=== PATIENT | male | born 1970 | race African-American/Black ===

== ENCOUNTER 2020-08-20 09:47 | Inpatient (IN) ==
[2020-08-20] MEDS ORDERED: SODIUM CHLORIDE 0.9% 1,000 ML IV STA ×2 (10:26→11:43)
[2020-08-20] MEDS ORDERED: INSULIN REGULAR 100 UNIT/ML IV ONE (10:27)
[2020-08-20 11:13] LABS: Albumin 3.6 G/DL (3.4-5.0); Bilirubin,Total 0.5 MG/DL (0.2-1.0); Calcium 10.3 MG/DL (8.5-10.1); Osmolality,Calculated 373.9 MOS/KG (273-304)
[2020-08-20 11:15] LABS: Basophils # 0.1 10*3/uL (0.0-0.2); Basophils % 0.3 % (0.0-0.8); Eosinophils # 0.1 10*3/uL (0.0-0.87); Eosinophils % 0.4 % (0.00-10.9); Hemoglobin 18.3 GM/DL (14.0-18.0); Immature Granulocytes % 0.7 %; Immature Granulocytes Absolute 0.16 #; Lymphocytes # 1.6 10*3/uL (1.4-4.0); Lymphocytes % 7.1 % (21.2-54.2); Mean Corpuscular HGB Conc 28.7 GM/DL (32-36); Mean Corpuscular Volume 94.2 FL (87-102); Mean Platelet Volume 12.6 FL (9.6-12.0); Monocytes % 6.2 % (1.7-12.7); Neutrophils % 85.3 % (38.7-73.9); Platelet Count 219 T/CUMM (130-400); Red Blood Count 6.76 MC/CUMM (3.8-5.5); Red Cell Distribution Width 17.3 % (9.3-17.3); White Blood Count 22.4 T/CUMM (4-12)
[2020-08-20 11:18] LABS: Hematocrit 63.7 VOL% (42.0-52.0)
[2020-08-20 11:22] LABS: Band Neutrophils 6 % (0-10); Hypochromasia 1+; Lymphocytes 4 % (20-55); Segmented Neutrophils 84 % (50-85); Total Cells Counted 100
[2020-08-20 11:23] LABS: Microcytosis 1+
[2020-08-20 11:24] LABS: Platelet Estimate Normal
[2020-08-20 11:43] LABS: ABG Base Excess -15.6 MMOL/L (-2.5-2.5); ABG HCO3 13.3 MMOL/L (20-26); ABG Oxygen Saturation 95.9 % (95-100); ABG PCO2 32.5 MM HG (35-48); ABG PO2 92.7 MM HG (80-95); ABG TCO2 10.6 MMOL/L (23-27)
[2020-08-20] MEDS ORDERED: ONDANSETRON 4 MG/2 ML VIAL IV PRN (12:01)
[2020-08-20] MEDS ORDERED: ALBUTEROL 2.5 MG/3 ML NEB RESP TX PRN (12:01)
[2020-08-20] MEDS ORDERED: DEXTROSE 50% 25 GM/50 ML VIAL IV PRN (12:05)
[2020-08-20] MEDS: INSULIN REGULAR DRIP 100 ML IV SCH ×3 (13:45→23:09)
[2020-08-20] MEDS ORDERED: SODIUM CHLORIDE 0.9% 1,000 ML IV ONE (13:48)
[2020-08-20] MEDS: PANTOPRAZOLE 40 MG VIAL IV SCH (14:10)
[2020-08-20] MEDS: LACTATED RINGERS 1,000 ML IV SCH ×2 (15:12→22:07)
[2020-08-20] MEDS: HEPARIN DRIP 25,000 UNITS/500 ML PREMIX IV SCH (15:32)
[2020-08-20 15:53] LABS: Calcium 9.6 MG/DL (8.5-10.1); Osmolality,Calculated 367.7 MOS/KG (273-304)
[2020-08-20] MEDS: MEROPENEM 500 MG in SODIUM CHLORIDE 0.9% 100 ML IV SCH (18:17)
[2020-08-20] MEDS ORDERED: DEXTROSE 5% LACTATED RINGERS 1,000 ML IV SCH (20:00)
[2020-08-20 21:46] LABS: Osmolality,Calculated 357.5 MOS/KG (273-304)
[2020-08-20] MEDS: POTASSIUM CHLORIDE RIDER 10 MEQ in PREMIX 1 EACH IV PRN ×2 (22:00→23:00)
[2020-08-20] MEDS: DEXTROSE 5% NACL 0.45% 1,000 ML IV SCH (22:00)
[2020-08-21 01:07] LABS: Bilirubin,Urine Negative (Negative); Blood, Urine Large mg/dL (Negative); Glucose,Urine (UA) >=500 mg/dL (Negative); Ketones,Urine 20 mg/dL (Negative); Nitrite,Urine Negative (Negative); Protein,Urine 100 MG/DL; RBC,Urine 1343 /HPF (0-4); Squamous Epithelial Cell,Urine Occasional /HPF (0-10); Urine Appearance CLOUDY (Clear); Urine Color Red (Yellow); Urine Specific Gravity 1.021 (1.001-1.035); Urine Urobilinogen < 2.0 EU/DL (0.2-1.0); WBC,Urine 17 /HPF (0-6)
[2020-08-21] MEDS: MEROPENEM 500 MG in SODIUM CHLORIDE 0.9% 100 ML IV SCH ×3 (01:30→17:33)
[2020-08-21 02:31] LABS: Calcium 7.3 MG/DL (8.5-10.1); Osmolality,Calculated 352.6 MOS/KG (273-304)
[2020-08-21] MEDS: DEXTROSE 5% NACL 0.45% 1,000 ML IV SCH ×2 (04:14→11:27)
[2020-08-21 04:23] LABS: Basophils # 0.1 10*3/uL (0.0-0.2); Basophils % 0.3 % (0.0-0.8); Hematocrit 55.3 VOL% (42.0-52.0); Hemoglobin 17.6 GM/DL (14.0-18.0); Immature Granulocytes % 0.6 %; Immature Granulocytes Absolute 0.13 #; Lymphocytes # 2.5 10*3/uL (1.4-4.0); Lymphocytes % 11.8 % (21.2-54.2); Mean Corpuscular HGB Conc 31.8 GM/DL (32-36); Mean Corpuscular Volume 86.9 FL (87-102); Monocytes % 6.8 % (1.7-12.7); NRBC # 0.03 10*3/uL; Neutrophils % 80.5 % (38.7-73.9); Platelet Count 191 T/CUMM (130-400); Red Blood Count 6.36 MC/CUMM (3.8-5.5); Red Cell Distribution Width 15.9 % (9.3-17.3)
[2020-08-21 04:52] LABS: Band Neutrophils 4 % (0-10); Lymphocytes 10 % (20-55); Platelet Estimate Normal; Segmented Neutrophils 83 % (50-85); Total Cells Counted 100
[2020-08-21 05:30] LABS: Calcium 9.4 MG/DL (8.5-10.1); Osmolality,Calculated 354.3 MOS/KG (273-304)
[2020-08-21] MEDS: HEPARIN DRIP 25,000 UNITS/500 ML PREMIX IV SCH ×3 (07:03→22:22)
[2020-08-21] MEDS: SODIUM CHLORIDE 0.45% 1,000 ML IV SCH ×3 (08:14→17:55)
[2020-08-21] MEDS: INSULIN REGULAR DRIP 100 ML IV SCH ×2 (09:31→13:18)
[2020-08-21] MEDS: CHOLECALCIFEROL 1,000 UNIT TABLET PO SCH ×2 (09:45→17:15)
[2020-08-21] MEDS: ASCORBIC ACID 500 MG TABLET PO SCH ×2 (09:45→17:15)
[2020-08-21] MEDS: ZINC GLUCONATE 50 MG TABLET PO SCH ×2 (09:45→17:15)
[2020-08-21 10:03] LABS: Calcium 9.4 MG/DL (8.5-10.1); Osmolality,Calculated 352.6 MOS/KG (273-304)
[2020-08-21] MEDS ORDERED: LACTATED RINGERS 1,000 ML IV ONE (10:10)
[2020-08-21 12:14] LABS: ABG Base Excess -1.9 MMOL/L (-2.5-2.5); ABG HCO3 22.8 MMOL/L (20-26); ABG Oxygen Saturation 97.2 % (95-100); ABG PCO2 39.8 MM HG (35-48); ABG PH 7.372 (7.35-7.45); ABG PO2 86.7 MM HG (80-95); ABG TCO2 19.2 MMOL/L (23-27)
[2020-08-21] MEDS: PANTOPRAZOLE 40 MG VIAL IV SCH (12:27)
[2020-08-21] MEDS ORDERED: SODIUM CHLORIDE 0.9% 1,000 ML IV PRN (14:19)
[2020-08-21 15:06] LABS: Calcium 9.3 MG/DL (8.5-10.1); Osmolality,Calculated 350.5 MOS/KG (273-304)
[2020-08-21] MEDS: DEXTROSE 50% 25 GM/50 ML VIAL IV PRN (16:55)
[2020-08-21 18:42] LABS: Calcium 8.1 MG/DL (8.5-10.1); Osmolality,Calculated 350.8 MOS/KG (273-304)
[2020-08-21] MEDS: INSULIN LISPRO 100 UNIT/ML SUBCUT SCH (21:47)
[2020-08-21] MEDS: POTASSIUM CHLORIDE RIDER 10 MEQ in PREMIX 1 EACH IV PRN (21:48)
[2020-08-21 23:14] LABS: Calcium 8.4 MG/DL (8.5-10.1)
[2020-08-22] MEDS: INSULIN LISPRO 100 UNIT/ML SUBCUT SCH ×6 (00:16→20:25)
[2020-08-22] MEDS: SODIUM CHLORIDE 0.45% 1,000 ML IV SCH ×4 (00:55→14:41)
[2020-08-22] MEDS: cloNIDine 0.1 MG TABLET PO PRN ×3 (03:03→13:09)
[2020-08-22] MEDS: MEROPENEM 500 MG in SODIUM CHLORIDE 0.9% 100 ML IV SCH ×3 (03:03→17:13)
[2020-08-22 04:01] LABS: Basophils # 0.1 10*3/uL (0.0-0.2); Basophils % 0.4 % (0.0-0.8); Eosinophils % 0.1 % (0.00-10.9); Hematocrit 46.7 VOL% (42.0-52.0); Hemoglobin 14.4 GM/DL (14.0-18.0); Immature Granulocytes % 1.7 %; Immature Granulocytes Absolute 0.34 #; Lymphocytes # 2.3 10*3/uL (1.4-4.0); Mean Corpuscular HGB Conc 30.8 GM/DL (32-36); Mean Corpuscular Volume 87.9 FL (87-102); Mean Platelet Volume 13.4 FL (9.6-12.0); NRBC # 0.06 10*3/uL; Neutrophils % 81.8 % (38.7-73.9); Red Blood Count 5.31 MC/CUMM (3.8-5.5); Red Cell Distribution Width 15.1 % (9.3-17.3); White Blood Count 19.4 T/CUMM (4-12)
[2020-08-22 04:14] LABS: Platelet Count 100 T/CUMM (130-400)
[2020-08-22 04:20] LABS: Osmolality,Calculated 360.3 MOS/KG (273-304)
[2020-08-22 04:27] LABS: Band Neutrophils 2 % (0-10); Lymphocytes 7 % (20-55); Nucleated Red Blood Cells 1 (0-5); Platelet Estimate Decreased; Segmented Neutrophils 86 % (50-85); Total Cells Counted 100
[2020-08-22 07:20] LABS: Osmolality,Calculated 354.7 MOS/KG (273-304)
[2020-08-22] MEDS: ASCORBIC ACID 500 MG TABLET PO SCH (08:11)
[2020-08-22] MEDS: ZINC GLUCONATE 50 MG TABLET PO SCH (08:11)
[2020-08-22] MEDS: CHOLECALCIFEROL 1,000 UNIT TABLET PO SCH (08:11)
[2020-08-22] MEDS ORDERED: INFLUENZA VIRUS VACCINE 0.5 ML SYRINGE IM ONE (09:00)
[2020-08-22] MEDS: DEXAMETHASONE 4 MG/1 ML VIAL IV SCH (10:18)
[2020-08-22] MEDS: INSULIN GLARGINE 100 UNIT/ML SUBCUT SCH ×2 (10:18→20:26)
[2020-08-22] MEDS: ACETAMINOPHEN 325 MG/10.15 ML UDCUP PER TUBE PRN ×2 (10:24→20:26)
[2020-08-22 11:47] LABS: Calcium 8.2 MG/DL (8.5-10.1); Osmolality,Calculated 354.6 MOS/KG (273-304)
[2020-08-22] MEDS ORDERED: SODIUM POLYSTYRENE SULFATE 15 GM/60 ML BOTTLE PO SCH (12:00)
[2020-08-22] MEDS: PANTOPRAZOLE 40 MG VIAL IV SCH (12:48)
[2020-08-22] MEDS ORDERED: SODIUM POLYSTYRENE SULFATE 15 GM/60 ML BOTTLE PO ONE (13:39)
[2020-08-22] MEDS: HEPARIN DRIP 25,000 UNITS/500 ML PREMIX IV SCH ×2 (14:19→20:25)
[2020-08-22 15:39] LABS: Osmolality,Calculated 357.5 MOS/KG (273-304)
[2020-08-22 17:24] LABS: Osmolality,Calculated 358.7 MOS/KG (273-304)
[2020-08-22 23:29] LABS: Calcium 7.6 MG/DL (8.5-10.1); Osmolality,Calculated 352.6 MOS/KG (273-304)
[2020-08-23] MEDS: INSULIN LISPRO 100 UNIT/ML SUBCUT SCH ×6 (00:23→21:52)
[2020-08-23] MEDS: MEROPENEM 500 MG in SODIUM CHLORIDE 0.9% 100 ML IV SCH ×3 (03:38→18:53)
[2020-08-23 03:44] LABS: Basophils % 0.2 % (0.0-0.8); Hematocrit 42.1 VOL% (42.0-52.0); Hemoglobin 13.3 GM/DL (14.0-18.0); Immature Granulocytes % 0.8 %; Immature Granulocytes Absolute 0.15 #; Lymphocytes # 1.3 10*3/uL (1.4-4.0); Lymphocytes % 7.2 % (21.2-54.2); Mean Corpuscular HGB Conc 31.6 GM/DL (32-36); Mean Corpuscular Volume 86.8 FL (87-102); Monocytes % 2.2 % (1.7-12.7); Neutrophils % 89.6 % (38.7-73.9); Red Blood Count 4.85 MC/CUMM (3.8-5.5); White Blood Count 17.9 T/CUMM (4-12)
[2020-08-23 03:45] LABS: Platelet Count 73 T/CUMM (130-400)
[2020-08-23 04:17] LABS: Band Neutrophils 3 % (0-10); Hypochromasia Slight; Lymphocytes 5 % (20-55); Platelet Estimate Decreased; Segmented Neutrophils 89 % (50-85); Total Cells Counted 100
[2020-08-23 04:18] LABS: Microcytosis Slight
[2020-08-23] MEDS: CHOLECALCIFEROL 1,000 UNIT TABLET PO SCH (08:01)
[2020-08-23] MEDS: DEXAMETHASONE 4 MG/1 ML VIAL IV SCH (08:01)
[2020-08-23] MEDS: ASCORBIC ACID 500 MG TABLET PO SCH (08:01)
[2020-08-23] MEDS: ZINC GLUCONATE 50 MG TABLET PO SCH (08:03)
[2020-08-23] MEDS: INSULIN GLARGINE 100 UNIT/ML SUBCUT SCH ×3 (09:14→21:52)
[2020-08-23 09:22] LABS: Calcium 7.5 MG/DL (8.5-10.1); Osmolality,Calculated 340.1 MOS/KG (273-304)
[2020-08-23] MEDS: SODIUM CHLORIDE 0.45% 1,000 ML IV SCH (09:37)
[2020-08-23] MEDS: PANTOPRAZOLE 40 MG VIAL IV SCH (11:30)
[2020-08-24] MEDS: INSULIN LISPRO 100 UNIT/ML SUBCUT SCH ×6 (00:48→20:50)
[2020-08-24] MEDS: SODIUM CHLORIDE 0.45% 1,000 ML IV SCH ×3 (00:49→19:21)
[2020-08-24] MEDS: MEROPENEM 500 MG in SODIUM CHLORIDE 0.9% 100 ML IV SCH ×3 (03:44→18:50)
[2020-08-24 04:57] LABS: Basophils % 0.1 % (0.0-0.8); Hematocrit 38.2 VOL% (42.0-52.0); Hemoglobin 12.3 GM/DL (14.0-18.0); Immature Granulocytes % 1.5 %; Immature Granulocytes Absolute 0.29 #; Lymphocytes # 1.4 10*3/uL (1.4-4.0); Mean Corpuscular HGB Conc 32.2 GM/DL (32-36); Mean Corpuscular Volume 85.5 FL (87-102); Mean Platelet Volume 12.9 FL (9.6-12.0); Monocytes % 3.2 % (1.7-12.7); Neutrophils % 88.2 % (38.7-73.9); Red Blood Count 4.47 MC/CUMM (3.8-5.5); Red Cell Distribution Width 14.5 % (9.3-17.3); White Blood Count 19.3 T/CUMM (4-12)
[2020-08-24 05:02] LABS: Platelet Count 93 T/CUMM (130-400)
[2020-08-24 05:20] LABS: Osmolality,Calculated 327.6 MOS/KG (273-304)
[2020-08-24 05:25] LABS: Band Neutrophils 2 % (0-10); Hypochromasia 1+; Lymphocytes 6 % (20-55); Microcytosis Slight; Platelet Estimate Decreased; Segmented Neutrophils 91 % (50-85); Total Cells Counted 100
[2020-08-24] MEDS: DEXAMETHASONE 4 MG TABLET PO SCH (09:34)
[2020-08-24] MEDS: ASCORBIC ACID 500 MG TABLET PO SCH (09:34)
[2020-08-24] MEDS: CHOLECALCIFEROL 1,000 UNIT TABLET PO SCH (09:34)
[2020-08-24] MEDS: ZINC GLUCONATE 50 MG TABLET PO SCH (09:34)
[2020-08-24] MEDS: INSULIN GLARGINE 100 UNIT/ML SUBCUT SCH ×2 (10:45→20:49)
[2020-08-24] MEDS: PANTOPRAZOLE 40 MG VIAL IV SCH (12:19)
[2020-08-25] MEDS: INSULIN LISPRO 100 UNIT/ML SUBCUT SCH ×9 (01:56→22:07)
[2020-08-25] MEDS: MEROPENEM 500 MG in SODIUM CHLORIDE 0.9% 100 ML IV SCH (03:41)
[2020-08-25 04:59] LABS: Basophils % 0.1 % (0.0-0.8); Hemoglobin 14.1 GM/DL (14.0-18.0); Immature Granulocytes % 1.6 %; Immature Granulocytes Absolute 0.24 #; Lymphocytes # 1.1 10*3/uL (1.4-4.0); Lymphocytes % 6.9 % (21.2-54.2); Mean Corpuscular Volume 84.8 FL (87-102); Mean Platelet Volume 12.5 FL (9.6-12.0); Monocytes % 5.1 % (1.7-12.7); Neutrophils % 86.3 % (38.7-73.9); Platelet Count 130 T/CUMM (130-400); Red Blood Count 5.19 MC/CUMM (3.8-5.5); Red Cell Distribution Width 14.1 % (9.3-17.3); White Blood Count 15.2 T/CUMM (4-12)
[2020-08-25 05:21] LABS: Alanine Aminotransferase 103 U/L (16-61); Alkaline Phosphatase 89 U/L (45-117); Aspartate Amino Transferase 170 U/L (0-37); Bilirubin,Total < 0.39 MG/DL (0.2-1.0); Blood Urea Nitrogen 123 MG/DL (7-18); Calcium 7.5 MG/DL (8.5-10.1); Estimated Glom Filtration Rate 14 ML/MIN; Glucose 190 MG/DL (74-106); Osmolality,Calculated 337.3 MOS/KG (273-304); Total Protein 6.8 G/DL (6.4-8.3)
[2020-08-25 05:27] LABS: Lymphocytes 9 % (20-55); Microcytosis Slight; Platelet Estimate Normal; Segmented Neutrophils 86 % (50-85); Total Cells Counted 100
[2020-08-25 06:19] LABS: Hepatitis B Core IgM Quant 0.08 Index; Hepatitis B Surface Ag Quant < 0.10 Index; Hepatitis B Surface Ag Result Negative (Negative); Hepatitis C Virus Ab Quant 0.04 Index; Hepatitis C Virus Ab Result Negative (Negative)
[2020-08-25] MEDS: INSULIN GLARGINE 100 UNIT/ML SUBCUT SCH ×2 (08:00→22:07)
[2020-08-25] MEDS: ASCORBIC ACID 500 MG TABLET PO SCH (08:02)
[2020-08-25] MEDS: DEXAMETHASONE 4 MG TABLET PO SCH (08:02)
[2020-08-25] MEDS: ZINC GLUCONATE 50 MG TABLET PO SCH (08:03)
[2020-08-25] MEDS: CHOLECALCIFEROL 1,000 UNIT TABLET PO SCH (08:03)
[2020-08-25] MEDS ORDERED: SODIUM POLYSTYRENE SULFATE 15 GM/60 ML BOTTLE PO ONE (10:03)
[2020-08-25] MEDS: APIXABAN 2.5 MG TABLET PO SCH ×2 (10:13→22:07)
[2020-08-25] MEDS: SODIUM CHLORIDE 0.45% 1,000 ML IV SCH (12:35)
[2020-08-25] MEDS: SODIUM BICARBONATE 650 MG TABLET PO SCH ×2 (14:30→22:07)
[2020-08-25 18:22] LABS: Calcium 7.8 MG/DL (8.5-10.1); Osmolality,Calculated 331.4 MOS/KG (273-304)
[2020-08-26] MEDS: INSULIN LISPRO 100 UNIT/ML SUBCUT SCH ×10 (01:07→20:47)
[2020-08-26] MEDS: APIXABAN 2.5 MG TABLET PO SCH ×2 (09:24→20:47)
[2020-08-26] MEDS: CHOLECALCIFEROL 1,000 UNIT TABLET PO SCH (09:24)
[2020-08-26] MEDS: INSULIN GLARGINE 100 UNIT/ML SUBCUT SCH ×2 (09:24→20:47)
[2020-08-26] MEDS: PANTOPRAZOLE 40 MG TABLET PO SCH (09:24)
[2020-08-26] MEDS: ZINC GLUCONATE 50 MG TABLET PO SCH (09:24)
[2020-08-26] MEDS: ASCORBIC ACID 500 MG TABLET PO SCH (09:24)
[2020-08-26] MEDS: SODIUM BICARBONATE 650 MG TABLET PO SCH ×3 (09:24→20:47)
[2020-08-26 11:48] LABS: Basophils % 0.2 % (0.0-0.8); Hemoglobin 14.6 GM/DL (14.0-18.0); Immature Granulocytes % 1.8 %; Immature Granulocytes Absolute 0.31 #; Lymphocytes # 1.2 10*3/uL (1.4-4.0); Lymphocytes % 6.8 % (21.2-54.2); Mean Corpuscular HGB Conc 31.7 GM/DL (32-36); Mean Corpuscular Volume 85.5 FL (87-102); Mean Platelet Volume 12.7 FL (9.6-12.0); Monocytes % 7.5 % (1.7-12.7); Neutrophils % 83.7 % (38.7-73.9); Platelet Count 174 T/CUMM (130-400); Red Blood Count 5.38 MC/CUMM (3.8-5.5); Red Cell Distribution Width 14.2 % (9.3-17.3)
[2020-08-26 12:02] LABS: Osmolality,Calculated 343.1 MOS/KG (273-304)
[2020-08-26] MEDS: cefTRIAXone 1,000 MG in SYRINGE 1 EACH IV SCH (13:58)
[2020-08-26] MEDS: AZITHROMYCIN INJ 500 MG in SODIUM CHLORIDE 0.9% 250 ML IV SCH (14:40)
[2020-08-26] MEDS: SODIUM CHLORIDE 0.45% 1,000 ML IV SCH (23:37)
[2020-08-27] MEDS: INSULIN LISPRO 100 UNIT/ML SUBCUT SCH ×10 (01:27→21:07)
[2020-08-27] MEDS: DEXTROSE 50% 25 GM/50 ML VIAL IV PRN ×2 (01:27→04:03)
[2020-08-27] MEDS: SODIUM CHLORIDE 0.45% 1,000 ML IV SCH ×2 (06:02→19:20)
[2020-08-27 06:51] LABS: Calcium 8.4 MG/DL (8.5-10.1); Osmolality,Calculated 345.4 MOS/KG (273-304)
[2020-08-27 07:10] LABS: Basophils # 0.1 10*3/uL (0.0-0.2); Basophils % 0.6 % (0.0-0.8); Eosinophils % 0.1 % (0.00-10.9); Hematocrit 49.7 VOL% (42.0-52.0); Immature Granulocytes % 2.2 %; Immature Granulocytes Absolute 0.31 #; Lymphocytes % 7.3 % (21.2-54.2); Mean Corpuscular HGB Conc 30.2 GM/DL (32-36); Mean Corpuscular Volume 89.4 FL (87-102); Mean Platelet Volume 11.9 FL (9.6-12.0); Monocytes % 7.9 % (1.7-12.7); Neutrophils % 81.9 % (38.7-73.9); Platelet Count 176 T/CUMM (130-400); Red Blood Count 5.56 MC/CUMM (3.8-5.5); Red Cell Distribution Width 14.3 % (9.3-17.3); White Blood Count 14.2 T/CUMM (4-12)
[2020-08-27] MEDS: APIXABAN 2.5 MG TABLET PO SCH ×2 (09:20→21:09)
[2020-08-27] MEDS: SODIUM BICARBONATE 650 MG TABLET PO SCH ×3 (09:20→21:08)
[2020-08-27] MEDS: POTASSIUM CHLORIDE RIDER 10 MEQ in PREMIX 1 EACH IV PRN ×3 (09:20→11:21)
[2020-08-27] MEDS: PANTOPRAZOLE 40 MG TABLET PO SCH (09:20)
[2020-08-27] MEDS: CHOLECALCIFEROL 1,000 UNIT TABLET PO SCH (09:20)
[2020-08-27] MEDS: ZINC GLUCONATE 50 MG TABLET PO SCH (09:20)
[2020-08-27] MEDS: ASCORBIC ACID 500 MG TABLET PO SCH (09:20)
[2020-08-27] MEDS: INSULIN GLARGINE 100 UNIT/ML SUBCUT SCH ×2 (09:35→21:08)
[2020-08-27 10:35] LABS: Anisocytosis 1+; Band Neutrophils 4 % (0-10); Hypochromasia Slight; Lymphocytes 9 % (20-55); Macrocytosis 1+; Metamyelocytes 2 %; Platelet Estimate Normal; Segmented Neutrophils 79 % (50-85); Total Cells Counted 100
[2020-08-27] MEDS: cefTRIAXone 1,000 MG in SYRINGE 1 EACH IV SCH (13:13)
[2020-08-27] MEDS: AZITHROMYCIN INJ 500 MG in SODIUM CHLORIDE 0.9% 250 ML IV SCH (13:16)
[2020-08-28] MEDS: SODIUM CHLORIDE 0.45% 1,000 ML IV SCH (00:42)
[2020-08-28] MEDS: INSULIN LISPRO 100 UNIT/ML SUBCUT SCH ×10 (01:30→20:33)
[2020-08-28 06:22] LABS: Basophils % 0.3 % (0.0-0.8); Eosinophils # 0.2 10*3/uL (0.0-0.87); Eosinophils % 1.6 % (0.00-10.9); Hematocrit 44.8 VOL% (42.0-52.0); Immature Granulocytes % 1.9 %; Immature Granulocytes Absolute 0.24 #; Lymphocytes # 1.9 10*3/uL (1.4-4.0); Mean Corpuscular HGB Conc 31.3 GM/DL (32-36); Mean Corpuscular Volume 84.5 FL (87-102); Mean Platelet Volume 12.2 FL (9.6-12.0); Monocytes % 6.8 % (1.7-12.7); Neutrophils % 74.4 % (38.7-73.9); Platelet Count 222 T/CUMM (130-400); Red Cell Distribution Width 13.9 % (9.3-17.3); White Blood Count 12.8 T/CUMM (4-12)
[2020-08-28 06:42] LABS: Calcium 8.9 MG/DL (8.5-10.1)
[2020-08-28] MEDS: PANTOPRAZOLE 40 MG TABLET PO SCH (09:21)
[2020-08-28] MEDS: ZINC GLUCONATE 50 MG TABLET PO SCH (09:21)
[2020-08-28] MEDS: CHOLECALCIFEROL 1,000 UNIT TABLET PO SCH (09:21)
[2020-08-28] MEDS: SODIUM BICARBONATE 650 MG TABLET PO SCH (09:21)
[2020-08-28] MEDS: ASCORBIC ACID 500 MG TABLET PO SCH (09:21)
[2020-08-28] MEDS: SODIUM CHLORIDE 23.4% CONC INJ 38.5 MEQ in STERILE WATER INJ 1,000 ML IV SCH (09:21)
[2020-08-28] MEDS: APIXABAN 2.5 MG TABLET PO SCH ×2 (09:21→21:14)
[2020-08-28] MEDS: INSULIN GLARGINE 100 UNIT/ML SUBCUT SCH ×2 (11:23→21:14)
[2020-08-28] MEDS: cefTRIAXone 1,000 MG in SYRINGE 1 EACH IV SCH (14:02)
[2020-08-28] MEDS: AZITHROMYCIN INJ 500 MG in SODIUM CHLORIDE 0.9% 250 ML IV SCH (14:06)
[2020-08-29] MEDS: INSULIN LISPRO 100 UNIT/ML SUBCUT SCH ×10 (01:10→23:00)
[2020-08-29] MEDS: SODIUM CHLORIDE 23.4% CONC INJ 38.5 MEQ in STERILE WATER INJ 1,000 ML IV SCH (05:10)
[2020-08-29 08:33] LABS: Basophils % 0.1 % (0.0-0.8); Eosinophils # 0.2 10*3/uL (0.0-0.87); Eosinophils % 1.5 % (0.00-10.9); Hematocrit 42.7 VOL% (42.0-52.0); Hemoglobin 13.4 GM/DL (14.0-18.0); Immature Granulocytes % 1.8 %; Lymphocytes % 11.8 % (21.2-54.2); Mean Corpuscular HGB Conc 31.4 GM/DL (32-36); Mean Corpuscular Volume 85.9 FL (87-102); Mean Platelet Volume 11.5 FL (9.6-12.0); Monocytes % 4.9 % (1.7-12.7); Neutrophils % 79.9 % (38.7-73.9); Platelet Count 274 T/CUMM (130-400); Red Blood Count 4.97 MC/CUMM (3.8-5.5); Red Cell Distribution Width 14.1 % (9.3-17.3); White Blood Count 16.5 T/CUMM (4-12)
[2020-08-29] MEDS: APIXABAN 2.5 MG TABLET PO SCH ×2 (08:47→21:50)
[2020-08-29] MEDS: PANTOPRAZOLE 40 MG TABLET PO SCH (08:47)
[2020-08-29] MEDS: ASCORBIC ACID 500 MG TABLET PO SCH (08:48)
[2020-08-29] MEDS: CHOLECALCIFEROL 1,000 UNIT TABLET PO SCH (08:48)
[2020-08-29] MEDS: INSULIN GLARGINE 100 UNIT/ML SUBCUT SCH ×2 (08:48→23:01)
[2020-08-29] MEDS: ZINC GLUCONATE 50 MG TABLET PO SCH (08:48)
[2020-08-29 08:49] LABS: Calcium 9.2 MG/DL (8.5-10.1); Osmolality,Calculated 327.7 MOS/KG (273-304)
[2020-08-29] MEDS: cefTRIAXone 1,000 MG in SYRINGE 1 EACH IV SCH (16:38)
[2020-08-29] MEDS: AZITHROMYCIN INJ 500 MG in SODIUM CHLORIDE 0.9% 250 ML IV SCH (16:39)
[2020-08-30] MEDS: SODIUM CHLORIDE 23.4% CONC INJ 38.5 MEQ in STERILE WATER INJ 1,000 ML IV SCH (01:22)
[2020-08-30] MEDS: INSULIN LISPRO 100 UNIT/ML SUBCUT SCH ×10 (01:22→20:27)
[2020-08-30 05:53] LABS: Basophils % 0.2 % (0.0-0.8); Eosinophils # 0.3 10*3/uL (0.0-0.87); Eosinophils % 1.5 % (0.00-10.9); Hematocrit 41.7 VOL% (42.0-52.0); Hemoglobin 13.1 GM/DL (14.0-18.0); Immature Granulocytes % 1.8 %; Immature Granulocytes Absolute 0.31 #; Lymphocytes # 2.1 10*3/uL (1.4-4.0); Lymphocytes % 11.9 % (21.2-54.2); Mean Corpuscular HGB Conc 31.4 GM/DL (32-36); Mean Corpuscular Volume 87.1 FL (87-102); Mean Platelet Volume 11.1 FL (9.6-12.0); Monocytes % 5.4 % (1.7-12.7); Neutrophils % 79.2 % (38.7-73.9); Platelet Count 306 T/CUMM (130-400); Red Blood Count 4.79 MC/CUMM (3.8-5.5); Red Cell Distribution Width 14.3 % (9.3-17.3); White Blood Count 17.5 T/CUMM (4-12)
[2020-08-30 06:20] LABS: Hypochromasia 1+; Microcytosis Slight; Platelet Estimate Normal; Target Cells Slight
[2020-08-30 06:23] LABS: Calcium 8.9 MG/DL (8.5-10.1); Osmolality,Calculated 321.7 MOS/KG (273-304)
[2020-08-30] MEDS: ASCORBIC ACID 500 MG TABLET PO SCH ×2 (08:31→10:41)
[2020-08-30] MEDS: APIXABAN 2.5 MG TABLET PO SCH ×3 (08:31→20:26)
[2020-08-30] MEDS: INSULIN GLARGINE 100 UNIT/ML SUBCUT SCH ×3 (08:31→23:14)
[2020-08-30] MEDS: CHOLECALCIFEROL 1,000 UNIT TABLET PO SCH ×2 (08:31→10:41)
[2020-08-30] MEDS: PANTOPRAZOLE 40 MG TABLET PO SCH ×2 (08:31→10:41)
[2020-08-30] MEDS: ZINC GLUCONATE 50 MG TABLET PO SCH ×2 (08:32→10:41)
[2020-08-30] MEDS: POTASSIUM CHLORIDE RIDER 10 MEQ in PREMIX 1 EACH IV PRN ×3 (16:10→18:24)
[2020-08-31] MEDS: POTASSIUM CHLORIDE RIDER 10 MEQ in PREMIX 1 EACH IV PRN (00:45)
[2020-08-31] MEDS: INSULIN LISPRO 100 UNIT/ML SUBCUT SCH ×4 (03:43→08:50)
[2020-08-31] MEDS: SODIUM CHLORIDE 23.4% CONC INJ 38.5 MEQ in STERILE WATER INJ 1,000 ML IV SCH (05:00)
[2020-08-31 05:53] LABS: Calcium 8.4 MG/DL (8.5-10.1)
[2020-08-31] MEDS: INSULIN GLARGINE 100 UNIT/ML SUBCUT SCH (08:02)
[2020-08-31] MEDS: CHOLECALCIFEROL 1,000 UNIT TABLET PO SCH (08:50)
[2020-08-31] MEDS: ASCORBIC ACID 500 MG TABLET PO SCH (08:50)
[2020-08-31] MEDS: ZINC GLUCONATE 50 MG TABLET PO SCH (08:50)
[2020-08-31] MEDS: APIXABAN 2.5 MG TABLET PO SCH (08:50)
[2020-08-31] MEDS: PANTOPRAZOLE 40 MG TABLET PO SCH (08:50)
[2020-08-31 11:50] VITALS: BP 141/73
== END 2020-08-31 11:55 | disposition left against medical advice (07) | DRG 177 ==
LOC: EDUNIT# → EDBD → N.ED 09:47 → SUATTDRO 11:57 → N.EDINP 11:57 → N.CC 13:34 → N.2E 08-25 16:41
PROVIDERS: ADMIT Internal Medicine; ATTEND Internal Medicine